=== PATIENT | female | born 1955 ===

== ENCOUNTER 2018-05-28 12:03 | Emergency (ER) | payer MEDICAID, OTHER ==
[~2018-05-28] VITALS: Ht 154.9 cm; Wt 68.0 kg
[2018-05-28] MEDS ORDERED: METF500T6 PO (12:22)
[2018-05-28] MEDS ORDERED: ATOR20TA PO (12:22)
[2018-05-28] MEDS ORDERED: FENO54TA3 PO (12:22)
[2018-05-28] MEDS ORDERED: GLIM1TAB3 PO (12:22)
[2018-05-28] MEDS ORDERED: IV NORMAL SALINE 1000 ML BAG IV ONE (12:30)
[2018-05-28] MEDS ORDERED: ONDANSETRON 4 MG/2 ML VIAL IV ONE (12:30)
[2018-05-28] MEDS ORDERED: ONDANSETRON 4 MG/2 ML VIAL ONE (12:44)
[2018-05-28 12:51] LABS: BASOPHILS % (AUTO) 0.4 % (0.0-2.0); EOSINOPHILS % (AUTO) 0.4 % (0.0-7.0); HEMATOCRIT 41.5 % (31.2-41.9); HEMOGLOBIN 14.4 g/dL (10.9-14.3); LYMPHOCYTES # (AUTO) 1.2 K/uL (20.0-40.0); LYMPHOCYTES % (AUTO) 16.2 % (20.5-51.5); MEAN CORPUSCULAR HEMOGLOBIN 30.8 uug (24.7-32.8); MEAN CORPUSCULAR HGB CONC 35 g/dL (32.3-35.6); MEAN CORPUSCULAR VOLUME 88.6 fL (75.5-95.3); MONOCYTES # (AUTO) 0.2 K/uL (2.0-10.0); MONOCYTES % (AUTO) 3.2 % (0.0-11.0); NEUTROPHILS # (AUTO) 5.8 K/uL (1.8-8.9); NEUTROPHILS % (AUTO) 79.8 % (38.5-71.5); PLATELET COUNT (AUTO) 206 K/uL (179-408); RED BLOOD CELL COUNT(AUTO) 4.68 MIL/uL (3.63-4.92); WHITE BLOOD COUNT (AUTO) 7.3 K/uL (3.8-11.8)
[2018-05-28 13:04] LABS: CREATININE 0.6 mg/dL (0.6-1.3); POTASSIUM 3.4 mmol/L (3.5-5.1)
[2018-05-28 13:19] LABS: BILIRUBIN,DIRECT 0.1 mg/dL (0.0-0.2); BILIRUBIN,TOTAL 0.6 mg/dL (0.2-1.0); TOTAL PROTEIN, SERUM 7.4 g/dL (6.4-8.2)
[2018-05-28 14:07] LABS: *BILIRUBIN,URIN NEGATIVE (NEGATIVE); *BLOOD, URINE NEGATIVE (NEGATIVE); *CLARITY,URINE CLEAR (CLEAR); *COLOR,URINE YELLOW (YELLOW); *KETONES,URINE NEGATIVE (NEGATIVE); *PROTEIN,URINE NEGATIVE (NEGATIVE); *UROBILINOGEN,URINE 0.2 E.U./dl (NORMAL); LEUKOCYTE ESTERASE ,URINE NEGATIVE (NEGATIVE); NITRITE, URINE NEGATIVE (NEGATIVE); PH,URINE 8.5 (5.0-8.0); UGLUCOSE TRACE (NEGATIVE)
[2018-05-28 14:08] LABS: BACTERIA,URINE FEW /HPF (NONE SEEN); RBC,URINE 0-3 /HPF (0-3); SQUAMOUS EPITHELIAL CELL,UR FEW /HPF (NONE SEEN); WBC,URINE 0-3 /HPF (0-3)
[2018-05-28] MEDS ORDERED: MORPHINE SULFATE 2 MG/1 ML DISP.SYRIN IV ONE (14:15)
[2018-05-28] MEDS ORDERED: ASPIRIN EC 325 MG TABLET.DR PO SCH (14:15)
[2018-05-28] MEDS ORDERED: ASPIRIN 325 MG TABLET ONE (14:23)
[2018-05-28] MEDS ORDERED: MORPHINE SULFATE 2 MG/1 ML DISP.SYRIN ONE (14:23)
--- NOTE | 2018-05-28 15:08 | NUR ---
Patient is resting comfortably in bed with eyes closed, NAD noted.
--- NOTE | 2018-05-28 15:39 | NUR ---
PT WAS ABLE TO TOLORATE PO INTAKE. NO N/V NOTED.
--- NOTE | 2018-05-28 15:46 | NUR ---
DR ORTIZ SPOKE TO ER , FOR PT'S TX TO A [employer]ATED.
--- NOTE | 2018-05-28 16:44 | NUR ---
Patient does not wish to proceed with medical care recommended by Dr. WATSON ). Patient given information related to possible complications, up to and including , which could occur as a result of leaving the hospital at this time. Patient verbalizes understanding of risks involved due to leaving against medical advice. Patient has signed AMA form.
[2018-05-28 16:50] VITALS: BP 116/55
== END 2018-05-28 16:51 | disposition left against medical advice (07) ==
LOC: ER 12:22
DX: R07.9 Chest pain, unspecified (principal); R51 Headache; R11.2 Nausea with vomiting, unspecified; R10.13 Epigastric pain; E11.9 Type 2 diabetes mellitus without complications; E03.9 Hypothyroidism, unspecified; E78.5 Hyperlipidemia, unspecified; Z79.84 Long term (current) use of oral hypoglycemic drugs
CPT/HCPCS: 36415; 70030-TC; 70450; 83605; 83690; 85025; 93005; A4663; J2270; J2405; J7030